=== PATIENT | female | born 1945 | race Caucasian/White ===

== ENCOUNTER → 2020-11-10 10:09 | Outpatient (CLI) | payer OTHER, SELFPAY ==
[2020-11-10 11:08] LABS: Add Manual Diff / Slide Review NO; Basophils Absolute Auto 100 /uL (0-100); Basophils Percent Auto 1.1 % (0-2); Eosinophils Absolute Auto 200 /uL (0-450); Eosinophils Percent Auto 2.9 % (2-4); Hematocrit 41.6 % (36-46); Hemoglobin 13.9 g/dL (12.0-16.0); Lymphocytes Absolute Auto 1300 /uL (1100-4500); Lymphocytes Percent Auto 20.3 % (25-40); Mean Corpuscular HGB Conc 33.4 % (30-36); Mean Corpuscular Hemoglobin 29.9 PG (26-34); Mean Corpuscular Volume 89.6 fL (80-100); Monocytes Absolute Auto 500 /uL (0-900); Monocytes Percent Auto 8.1 % (3-14); Neutrophils Absolute Auto 4400 /uL (1500-7000); Neutrophils Percent Auto 67.6 % (50-75); Platelet Count 240 X10^3/uL (150-400); Red Blood Cell Count 4.64 X10^6/uL (4.0-5.2); Red Cell Distribution Width 14.5 % (11.6-14.8); White Blood Cell Count 6.5 X10^3/uL (4.5-11.0)
[2020-11-10 11:22] LABS: BUN Creatinine Ratio 18.9 (6-22); Blood Urea Nitrogen 14 mg/dL (7-17); Carbon Dioxide 28 mmol/L (22-32); Chloride 105 mmol/L (98-107); Estimated Glomerular Filt Rate > 60.0 mL/min (>60); Glucose 79 mg/dL (80-110); HEMOLYSIS < 15 (0-50); Potassium 4.6 mmol/L (3.4-5.1); Sodium 140 mmol/L (137-145)
== END ==
PROVIDERS: PCP Family Medicine; Referring Provider Orthopaedic Surgery; Visit Provider Orthopaedic Surgery
DX: Z01.818 Encounter for other preprocedural examination (principal); I10 Essential (primary) hypertension; Z01.812 Encounter for preprocedural laboratory examination
CPT/HCPCS: 36415; 80048; 85025; 93005

== ENCOUNTER → 2020-11-27 09:45 | Outpatient (CLI) | payer OTHER, SELFPAY ==
[2020-11-27 11:15] LABS: COVID19 -Nasal RAPID Negative (Negative)
== END ==
PROVIDERS: PCP Family Medicine; Visit Provider Physician Assistant
DX: Z01.812 Encounter for preprocedural laboratory examination (principal); Z20.822 Contact with and (suspected) exposure to COVID-19
CPT/HCPCS: 87635

== ENCOUNTER 2020-11-29 08:54 | Day surgery (SDC) | payer OTHER, SELFPAY ==
[2020-11-22 08:34] VITALS: BMI 33.0
[2020-11-29] VITALS (16 sets, daily range): BP systolic 104–142; BP diastolic 66–95; PULSE 60–97; RESP 11–20; TEMP 36.2–37.3; O2SAT 72–97; BMI 33.0
--- NOTE | 2020-11-29 | PATH_ITS ---
[facility] Accession Number: [id number] . 01 Material submitted: . shoulder - RIGHT SHOULDER . 01 Clinical history: . SKIN LESION . 01 Diagnosis: Right Shoulder, Excision: Seborrheic keratosis, inflamed. [facility] 12/03/2020 1453 Local . 01 Electronically signed: . Gabbie Marshall MD, Dermatopathologist NPI- [id number] . 01 Gross description: . The specimen is received in formalin, labeled skin lesion right shoulder, and consists of a 3.3 x 0.5 cm titus skin excised to a depth of 0.8 cm. The margin is inked blue. The specimen is serially sectioned and entirely submitted. . A1: Tips. A2-A4: Central cross-sections - three each . ([id number]) /[facility] 12/03/2020225 Local . 01 Pathologist provided ICD-10: L82.0 . 01 CPT . 388156 Performed at: 01 [facility] [address] [place] [address], [place], [place] [id number] MD Martinez José MD Phone: [phone]
--- NOTE | 2020-11-29 06:30 | DI.RAD.S_ITS ---
PROCEDURE: XR SHOULDER RT 1V INDICATIONS: post op total shoulder TECHNIQUE: Single view of the shoulder were acquired. COMPARISON: None. FINDINGS: Bones: No acute fracture identified. Expected alignment of reverse polarity right shoulder arthroplasty. The hardware appears intact. Soft tissues: Expected postsurgical sequela IMPRESSION: Expected postoperative appearance. Dictated by: Efra Mosquera M.D. on 11/29/2020 at 14:24 Approved by: Efra Mosquera M.D. on 11/29/2020 at 14:25
[2020-11-29] MEDS: ACETAMINOPHEN 325 MG TABLET 975 MG PO (09:25)
[2020-11-29] MEDS: CELECOXIB 200 MG CAPSULE PO (09:26)
[2020-11-29] MEDS: PREGABALIN 75 MG CAPSULE PO (09:26)
[2020-11-29] MEDS: LACTATED RINGERS 1,000 ML 42 ML IV (09:30)
--- NOTE | 2020-11-29 09:48 | PM.PREOP ---
Pre-operative Note COVID-19 COVID-19 status: Negative Result date/Date tested (Pos, Neg/Pending): 11/27/20 Interval Note History & Physical reviewed/Exam performed by Physician: Yes Changes to H&P: No
--- NOTE | 2020-11-29 10:09 | P.OP_ITS ---
Operative Date/Time/Diagnoses Date of procedure: 11/29/20 Time of procedure: 12:36 Pre-op diagnosis: Right shoulder osteoarthritis with rotator cuff pathology Post-op diagnosis: other (1. Right shoulder osteoarthritis with rotator cuff pathology 2. Skin lesion of right shoulder) Procedure & Clinicians Procedure: 1. Right reverse total shoulder replacement 2. Excisional biopsy of skin lesion Same procedure as scheduled: Yes Indications: The patient is had chronic right shoulder pain unresponsive to nonoperative therapies. Radiographic studies have revealed changes consistent with a massive rotator cuff tear and arthritis. They have elected to proceed with reverse total shoulder replacement after discussion of the risks benefits and alternatives. Risks discussed included but were not limited to: Failure to improve, instability, infection, nerve damage, deep venous thrombosis, pulmonary embolism, stroke, coma, myocardial infarction and . Surgeon: Raymond Moran Openstack Developer: Arslan Harman Click Yes if Unassisted: No Anesthesia Type: General, Peripheral nerve block and Local Operative Notes Findings: The patient had severe osteoarthritis with dramatic thinning of the rotator cuff. She also was noted to have a verrucous brownish skin lesion in line with the intended incision this was excised and sent for pathology. Closure Type: primary Specimen(s): other (Skin lesion sent for pathology) Prosthetic devices, grafts, tissues, transplants, or devices: Implants used during this procedure were manufactured by the [employer] and included an RSP reverse total shoulder system with a 30 mm base plate with locking screws measuring 30, 26, 14 and 14 mm in length, a 32 neutral glenoid head with retaining screw, a 12 mm small shell humeral stem and a 32 mm neutral +4 E plus humeral socket. Applied: implant(s) Estimated Blood Loss (mL): 100 Blood products transfused: none Procedure in detail: The patient was seen in the preoperative area where they identified the right shoulder as the operative site and this was marked with my initials. They received preoperative antibiotics and underwent the induction of an interscalene block. They were taken to the operating room and placed on the operating room table in a supine position with the underwent the induction of a general anesthetic. There were then repositioned in the ?beach chair? position using a dedicated positioner. All pressure points were well padded. The knees were slightly bent to prevent tension on the sciatic nerves. A time study observer-out was performed. The right arm was prepared from the fingertips to the base of the neck with ChloraPrep in the usual fashion and draped through sterile drapes. An approximately 15 cm incision was created starting at the clavicle just above the coracoid and going to the deltoid insertion. The deltopectoral interval was used to access the shoulder taking the vein to the medial side. The vein was unfortunately lacerated by a retractor partway through the case and was cauterized and ligated during closure.. The upper 1 cm of the pectoralis major was released. The biceps tendon was identified and used as a guide to releasing the remaining subscapularis. The biceps itself was tenodesed over the pectoralis tendon using a suture. The subscapularis was tagged for later repair. The shoulder was dislocated and a proximal humeral osteotomy performed using an extramedullary guide. A proximal humeral protector was then placed. Retractors were placed access the glenoid. A 360 degree release was performed of the remaining subscapularis with care being taken to protect the axillary nerve. The soft tissues were removed circumferentially around the glenoid. The guide was used to drill the guide hole in the center of the inferior glenoid. The tap was placed and used as a guide for the reamer. The tap was then removed and the glenoid base plate inserted. The peripheral locking screws were then placed through the appropriate guide. A trial glenoid head was applied. We then turned our attention to the humerus. The proximal humeral protector was removed. Cylindrical reamers were used to size the canal. Broaching was then performed beginning with a small broach and working up until a line to line fit with the reamer was obtained. The guide for the proximal metaphyseal reamer was then applied and the metaphysis was reamed appropriately. The trial metaphyseal portion of the body was then applied to the broach. Trial reductions were performed and the size of the glenoid head and the cup were optimized. Stability was checked in maximal internal and external rotation and range of motion was checked to allow access to the top of the head, internal rotation to an excess of 50? in the ?scarecrow position? and the ability to reach the groin. The appropriate final prosthetic components were then opened. The glenoid head was impacted into position and checked for rotational and axial stability before placing the set screw. The humeral prosthetic was then impacted into position. The humeral cup was placed. The joint was relocated and irrigated. The subscapularis was repaired to the lateral remnant of the subscapularis with [id number] Ethibond sutures. The deltopectoral interval was reapproximated with 0 Vicryl. During closure I excised the skin lesion that was on the lateral flap that was immediately next to the incision. It was sent to pathology. Subcutaneous layer was closed with interrupted 3-0 Vicryl and skin with a running 3 0 V lock suture. Subcutaneous tissues were then infiltrated with 0.5% Marcaine for postoperative pain control. An Aquacel Ag dressing was applied and the patient's arm was placed in a sling. The patient was then transferred to the recovery room in good condition having tolerated the procedure well. Complications: none Post-operative Condition: stable Disposition: PACU Plan for aftercare: The patient will be maintained in the hospital until she is safe for the home environment; she will likely be discharged tomorrow. She will be allowed to use her arm below shoulder level in front of her body for the 1st 6 weeks and then range of motion will be increased.
--- NOTE | 2020-11-29 10:26 | SUR.PREOP ---
Block start time [1019] . Monitoring initiated and maintained throughout procedure. Oxygen and medications given per Dr Thompson anesthesiologist instructions. Patient remained stable throughout procedure, no adverse reactions noted. Block end time [1025].
[2020-11-29] MEDS: TRANEXAMIC ACID 1,000 MG VIAL 1000 MG INJ ×2 (11:00→12:07)
--- NOTE | 2020-11-29 11:05 | PM.PROC.1 ---
Procedures Date/Time Date of procedure: 11/29/20 Time of procedure: 10:20 General Procedure description: Ultrasound guided interscalene brachial plexus nerve block for post op pain control after right shoulder arthroplasty by Dr. Moran. Risk and benefits of procedure discussed with patient. ASA monitoring applied to patient. O2 given via nasal cannula. 1 mg Versed and 50 mcg fentanyl given for procedural sedation. Skin site was prepped with chlorhexidine and allowed to fully dry. Sterile gloves, mask, hat and probe cover were used to maintain sterility. 2% lidocaine and 30ga needle was used to make a small skin wheal at needle insertion site. Under ultrasound guidance, a 21ga 50mm Pajunk needle was directed into the interscalene groove (middle/anterior scalenes) near the brachial plexus. Patient reported no parasthesias. After negative aspiration, 20 mL 0.5% ropivicaine and 10mg dexamethasone were injected around brachial plexus. Patient tolerated procedure well.
--- NOTE | 2020-11-29 11:11 | SUR.OPER ---
Beach chair with Schlein shoulder positioner. Lower body on padded OR bed. Head in foam padded head cradle, secured with straps. Non-operative arm secured <90 degrees abduction. Pillow under knees. Safety belt at thigh. Cloth tape over blanket over lower legs.
[2020-11-29] MEDS: BUPIVACAINE 0.5% (PF) VIAL 30 ML INJ (11:17)
[2020-11-29] MEDS: CEFAZOLIN 1 GM VIAL 2 GM IV (11:18)
[2020-11-29] MEDS: BENZOCAINE/MENTHOL 1 LOZ PKT 1 EACH PO (12:59)
--- NOTE | 2020-11-29 13:53 | PC.NURSE ---
Patient alert, oriented denies pain, CMS+ RUE. Denies nausea. Patient oriented to room and call light.
[2020-11-29] MEDS: ACETAMINOPHEN 325 MG TABLET 650 MG PO ×2 (14:21→21:05)
[2020-11-29] MEDS: LACTATED RINGERS 1,000 ML 100 ML IV ×2 (14:21→21:09)
[2020-11-29] MEDS: IBUPROFEN 400 MG TABLET PO ×3 (14:21→21:05)
--- NOTE | 2020-11-29 16:58 | PT.IIE ---
Current Diagnoses Primary osteoarthritis, right shoulder (11/29/20) Surgery Performed Operation Date: 11/29/20 10:15 Actual Procedures p Total Shoulder Arthroplasty - Reverse(Right) - Raymond Moran MD Surgical History (Last Updated 11/22/20 @ 09:36 by Jerri Pelletier, RN) History of bunionectomy of left great toe History of cataract surgery History of eye removal History of surgery (01/11/16) Status post breast reduction Medical History (Last Updated 11/22/20 @ 09:28 by Jerri Pelletier RN) Arthritis Easy bruisability GERD (gastroesophageal reflux disease) MRSA (methicillin resistant Staphylococcus aureus) Osteoarthritis Physical Therapy Inpatient Evaluation/Re-Eval M1 PT/OT-IP Prior Functional Status Start: 11/29/20 16:25 Freq: NEEDED Status: Active Protocol: Document 11/29/20 16:58 AW (Rec: 11/29/20 17:27 AW [id number]) Medical Review Prior Functional Status Medical History Reviewed Yes Communication WNL. Pt is an effective verbal communicator Mobility and Gait Independent without AD. Pt denies falls history. Activities of Daily Living and IADL's Pt is RHD, has been needing some assist to don a bra, but is otherwise independent with ADL's. Social History Household Members friend(s) Living Arrangements Apartment/Condo Number of Floors (Floors) One Floor Number of Stairs To Enter/Railing? 1 BORA without railing Home Environment High Toilet,Tub/Shower Home Equipment Straight Cane,Hand Held Shower ,Grab Bars In Shower Employment Status Self-Employed Additional Social History Comment Pt has an adjustable bed. 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 Pt's son lives on the other side of her duplex. M2 PT-IP Current Condition Start: 11/29/20 16:25 Freq: NEEDED Status: Active Protocol: Document 11/29/20 16:58 AW (Rec: 11/29/20 17:27 AW [id number]) Physical Therapy Current Condition Current Condition Evaluation Date 11/29/20 Treatment Diagnosis R reverse TSA; decreased independence with self-care Onset Date 11/29/20 Precautions Shoulder Precautions Sling,PROM,Internal Rotation to Body,No External Rotation, No Abduction,Forward Flexion to 90 degrees,Pendulums Brace Pt arrived from OR in a sling that was used with a new OR positioning system. M3 PT-IP Subjective Start: 11/29/20 16:25 Freq: NEEDED Status: Active Protocol: Document 11/29/20 16:58 AW (Rec: 11/29/20 17:27 AW [id number]) Subjective Physical Therapy Visit Type Type Initial Evaluation Visit Start Time 16:29 Visit Stop Time 16:58 Total Visit Minutes 29 Physical Therapy Visit Comments Patient Comments Pt is willing to participate with PT Patient Goals Return home with roommate support. Therapy Pain Assessment Pain When Pain Assessed During Mobility Pain Present Pain Present Denied Pain M4 PT-IP Mobility and Gait Start: 11/29/20 16:25 Freq: NEEDED Status: Active Protocol: Document 11/29/20 16:58 AW (Rec: 11/29/20 17:27 AW [id number]) PT-Bed Mobility Assessment Supine to Sit Supine to Sit Standby Assistance,Head of Bed Elevated Sit to Supine Sit to Supine Standby Assistance PT-Transfer Assessment Sit to and From Stand Sit to and from Stand Standby Assistance,Use of Upper Extremities Equipment Transfer Assistive Device Gait Belt Orthotic/Prosthetic Devices or Brace: Yes Transfers Transfer Destination Chair Transfer Technique Stand Step Pivot Transfer Ability Level of Assist Standby Assistance Comments Mobility Comments Pt was sitting up in bed 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 BP 137/72 HR 98 SpO2 92% on 2LPM O2 NC. She transitioned to EOB SBA and then stood to walk to the sink for education and sling fitting. Sling was bulky and with an unnecessary wedge. PT left to obtain standard sling and returned for fitting and education with pt at mirror. Pt began to complain of dizziness and returned to the bed SBA. BP was stable 132/76 HR 95 but Spo2 was 87% on room air. Reapplied O2 via NC and SpO2 rosemary to 91% within one minute. Pt was left with call light and tray table in reach. Gait Assessment Gait Gait Assistance Required: Standby Assistance Distance (Feet) 20 Assistive Devices Assistive Device Gait Belt Gait Deviations General Gait Pattern Antalgic,Decreased Stride Length,Decreased Feet Clearance,Wide Based Gait Factors Limiting Gait Function Factors Limiting Gait Function Decreased Activity Tolerance, Decreased Sensation,Decreased Strength,Limited Range of Motion Comments Gait Comments Pt ambulated in the room without assistive device as is her baseline. Stair Climbing Assessment Comments Stair Climbing Comments Not assessed. PT-Balance Assessment Sitting Balance and Reactions Static Sitting Balance Ability Good Dynamic Sitting Balance Ability Good Standing Balance and Reactions Static Standing Balance Ability Good Dynamic Standing Balance Ability Good Device Used no AD M5 PT-IP Objective Assessments Start: 11/29/20 16:25 Freq: NEEDED Status: Active Protocol: Document 11/29/20 16:58 AW (Rec: 11/29/20 17:27 AW [id number]) Orientation Orientation/Cognition Level of Alertness Alert Orientation Name,Day of Week,Place, Situation Language Function Ability No Deficits Noted Safety Awareness Understands Safety Issues Memory Description No Deficits Noted Gross Range of Motion Upper Extremity ROM Assessment Right Impaired Lower Extremity ROM Assessment Within Functional Limits Strength Upper Extremity Strength Assessment Right Impaired Lower Extremity Strength Assessment Within Functional Limits Comments Strength Comments LUE grossly 4+/5 Sensation Assessment Sensation Gross Sensation Right UE Impaired Light Touch Impaired Proprioception (Position) Impaired Sensation Description Numbness,[employer] Muscle Tone Muscle Tone WNL Yes M6 PT-IP Treatment Start: 11/29/20 16:25 Freq: NEEDED Status: Active Protocol: Document 11/29/20 16:58 AW (Rec: 11/29/20 17:27 AW [id number]) Physical Therapy Treatment Education Education Provided Precautions,Post-Op Packet, Safety Brace Education Donning,Waterflow,Patient Equipment Issued Equipment Type and Company Replaced OR sling with standard shoulder sling XL from [facility] Other Treatments Other Treatment Performed Educated pt on PT plan of care , post op precautions, sling fitting, and ADL management. Demonstrated but pt did not perform exercises. Will review at next session. M7 PT-IP Assessment and Plan Start: 11/29/20 16:25 Freq: NEEDED Status: Active Protocol: Document 11/29/20 16:58 AW (Rec: 11/29/20 17:27 AW [id number]) PT Summary Assessment and Plan Potential Rehabilitation Potential Good Status of Condition at Evaluation Evolving Summary Impairments Pain,ROM,Strength,Balance, Sensation,Bed Mobility, Transfers,Gait Assessment Summary Medina is a 75 yo woman seen for PT evaluation on POD0 following R reverse TSA. She is independent without assistive device at baseline. She lives with supportive roommates and her son lives in the adjacent duplex unit. Pt completed all mobility SBA on evaluation and participated in training for sling fitting and mangement. Pt will need additional training but PT anticipates she will be safe to discharge home with assist once medically stable. Goals Bed Mobility Goal Independent Transfer Goal Independent Gait Goal Independent Gait Distance 100 Other Goals -up/down 1 step without rail CGA Frequency of Treatment Frequency Of Treatment Twice a Day Treatment Plan Physical Therapy Treatment Plan Bed Mobility Training,Transfer Training,Gait Training, Therapeutic Exercise,Balance Retraining,Post Op Education, Discharge Planning,Hot or Cold Pack Other Recommendations and Next Treatment review sling fit, don/doff, Focus and ADL management Precautions Shoulder Precautions Sling,PROM,Internal Rotation to Body,No External Rotation, No Abduction,Forward Flexion to 90 degrees,Pendulums Recommendations To Nursing Amount of Assist Needed 1 Person Assist Discharge Recommendations PT Discharge Recommendations Home with Assistance, Outpatient PT Transportation Needs at Discharge Private Vehicle
[2020-11-29] MEDS: ONDANSETRON 4 MG/2 ML INJ IV (18:22)
[2020-11-29] MEDS: ASPIRIN EC 81 MG TABLET PO (21:05)
[2020-11-29] MEDS: DOCUSATE 100 MG CAPSULE PO (21:05)
[2020-11-29] MEDS: MELATONIN 3 MG TABLET 9 MG PO (21:06)
[2020-11-30] MEDS: IBUPROFEN 400 MG TABLET PO ×3 (00:29→08:32)
[2020-11-30 04:22] VITALS: BP 103/61; PULSE 72; RESP 16; TEMP 36.3; O2SAT 92
[2020-11-30 06:33] LABS: Hematocrit 36.1 % (36-46); Hemoglobin 11.7 g/dL (12.0-16.0)
--- NOTE | 2020-11-30 07:37 | PM.DS.1 ---
History of Present Illness History of Present Illness Date Patient Seen: 11/30/20 Time Patient Seen: 07:38 Chief complaint: OPB Narrative: The history and physical is contained in the chart in a previously completed note. Please refer to that note for this information. Discharge Providers Provider Discharge Date: 11/30/20 Primary care physician: Mickey Pacheco MD Consults: 11/29/20 13:19 Consult to Discharge Planning Routine Comment: Consult to Physical Therapy Evaluate & Treat Comment: Physician Instructions: Pendulums, PROM 90 FF, 0 Abd, 0 ER, IR to body Discharge provider: Raymond Moran MD Summary Hospital Course Discharge Diagnosis: 1. Right shoulder osteoarthritis with rotator cuff pathology 2. Post hemorrhagic anemia Hospital Course: Patient was admitted to the hospital and taken directly to the operating room on November 29 2020. She underwent a right reverse total shoulder replacement without complications. She was comfortable on postoperative day 1. She had been able to ambulate to and from the bathroom. She had a mild post hemorrhagic anemia that did not require specific treatment. She was felt to be stable for discharge. Status at Discharge Cognitive/behavioral status at discharge: oriented Functional status at discharge: independent ambulation Overall status at discharge: patient is progressing back to baseline Time Spent with Patient Time spent: Less than 30 minutes Exam Vital Signs (past 8 hours): - 11/29/20 23:48 11/30/20 04:22 Temperature 97.1 F L 97.3 F L Pulse Rate 67 72 Respiratory Rate 18 16 Blood Pressure 104/66 103/61 Pulse Oximetry 93 92 Oxygen Delivery Method Room Air Oxygen Flow Rate 0 Narrative Exam Narrative: Right upper extremity wound is dressed with no drainage on the bandage. Light touch is intact in the radial, ulnar, median, muscular cutaneous and axillary nerve distribution. She can extend her thumb, abduct her thumb and abduct her fingers. She can fire her biceps and deltoid. Objective Labs Result Diagrams: 11/30/20 06:02 Labs: Laboratory Results - last 24 hr 11/30/20 06:02 Hgb 11.7 L Hct 36.1 PFSH Medical History (Updated 11/22/20 @ 09:28 by Jerri Pelletier RN) Arthritis Easy bruisability GERD (gastroesophageal reflux disease) MRSA (methicillin resistant Staphylococcus aureus) Osteoarthritis Surgical History (Updated 11/22/20 @ 09:36 by Jerri Pelletier RN) History of bunionectomy of left great toe History of cataract surgery History of eye removal History of surgery (01/11/16) Status post breast reduction Social History household members: friend(s) Smoking Status: Never smoker alcohol intake: current Discharge Assessment & Plan Assessment and Plan Assessment: Stable postoperative day 1 status post right reverse total shoulder replacement. She has a mild post hemorrhagic anemia which will not require specific treatment. Plan of Treatment: Discharge to home with follow-up in my office in 10-14 days. Discharge prescriptions for oxycodone and instructions for the use of Tylenol, ibuprofen and aspirin for DVT prophylaxis have been given to the patient. Discharge Plan Discharge Plan Patient Disposition: Home Discharge orders & Medications Discharge Orders: Discharge (Order); Ordered 11/30/20 Ordered By: Raymond Moran Prescriptions: New acetaminophen 325 mg Tablet 650 mg PO TID 30 Days Qty: 180 RF: 0 aspirin 81 mg Tablet,Delayed Release (Dr/Ec) 81 mg PO BID 42 Days Qty: 84 RF: 0 ibuprofen 400 mg Tablet 400 mg PO Q4HR 30 Days RF: 0 oxycodone 5 mg Tablet 5 mg PO Q4H PRN (Reason: Pain, Moderate (4-6)) Qty: 40 RF: 0 Continued melatonin 10 mg Tablet 10 mg PO BEDTIME PRN (Reason: Sleep) RF: 0 Discontinued ibuprofen 200 mg Capsule 600 - 800 mg PO DAILY PRN (Reason: Pain) RF: 0 Follow up/Referrals: Mickey Pacheco MD [Primary Care Provider] - Raymond Moran MD [Physician] - 2 Weeks Diet/Activity/Treatments Diet: Diet as Tolerated and Regular Activity: You may use your right arm in front of your body below shoulder level. Lift no more than 1-2 lb with your right arm. Cold/Heat Therapy: Apply ice to the right shoulder for 15 minutes every hour as needed for pain control. Skin/Wound/Dressing Care Report to your healthcare provider any signs of infection, such as:: chills, fever, night sweats, increased pain, unusual drainage and unusual redness Dressing: Leave the dressing intact until your follow-up in my office. You may shower with the dressing in place. If the central strip of the dressing becomes saturated with either water or blood, please call the office to have it evaluated. Visit Report/Discharge Packet Instructions: DI for Shoulder Replacement Stand Alone Forms: Surgery Discharge Discharge Data Primary Care Provider: Mickey Pacheco Attending Provider: Raymond Moran Quality VTE Deep Vein Thrombosis/Pulmonary Embolism Present on Admission: No
[2020-11-30 08:00] VITALS: BP 118/73; PULSE 70; RESP 16; TEMP 36.6; O2SAT 93
[2020-11-30] MEDS: ACETAMINOPHEN 325 MG TABLET 650 MG PO (08:31)
[2020-11-30] MEDS: ASPIRIN EC 81 MG TABLET PO (08:31)
[2020-11-30] MEDS: polyethylene glycoL 3350 17 GM POWD.PACK PO (08:31)
[2020-11-30] MEDS: DOCUSATE 100 MG CAPSULE PO (08:32)
--- NOTE | 2020-11-30 10:53 | PT.IIE ---
Current Diagnoses Primary osteoarthritis, right shoulder (11/29/20) Surgery Performed Operation Date: 11/29/20 10:15 Actual Procedures p Total Shoulder Arthroplasty - Reverse(Right) - Raymond Moran MD Surgical History (Last Updated 11/22/20 @ 09:36 by Jerri Pelletier, RN) History of bunionectomy of left great toe History of cataract surgery History of eye removal History of surgery (01/11/16) Status post breast reduction Medical History (Last Updated 11/22/20 @ 09:28 by Jerri Pelletier RN) Arthritis Easy bruisability GERD (gastroesophageal reflux disease) MRSA (methicillin resistant Staphylococcus aureus) Osteoarthritis Physical Therapy Inpatient Evaluation/Re-Eval M1 PT/OT-IP Prior Functional Status Start: 11/29/20 16:25 Freq: NEEDED Status: Active Protocol: Document 11/29/20 16:58 AW (Rec: 11/29/20 17:27 AW [id number]) Medical Review Prior Functional Status Medical History Reviewed Yes Communication WNL. Pt is an effective verbal communicator Mobility and Gait Independent without AD. Pt denies falls history. Activities of Daily Living and IADL's Pt is RHD, has been needing some assist to don a bra, but is otherwise independent with ADL's. Social History Household Members friend(s) Living Arrangements Apartment/Condo Number of Floors (Floors) One Floor Number of Stairs To Enter/Railing? 1 BORA without railing Home Environment High Toilet,Tub/Shower Home Equipment Straight Cane,Hand Held Shower ,Grab Bars In Shower Employment Status Self-Employed Additional Social History Comment Pt has an adjustable bed. 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 Pt's son lives on the other side of her duplex. M2 PT-IP Current Condition Start: 11/29/20 16:25 Freq: NEEDED Status: Active Protocol: Document 11/29/20 16:58 AW (Rec: 11/29/20 17:27 AW [id number]) Physical Therapy Current Condition Current Condition Evaluation Date 11/29/20 Treatment Diagnosis R reverse TSA; decreased independence with self-care Onset Date 11/29/20 Precautions Shoulder Precautions Sling,PROM,Internal Rotation to Body,No External Rotation, No Abduction,Forward Flexion to 90 degrees,Pendulums Brace Pt arrived from OR in a sling that was used with a new OR positioning system. M3 PT-IP Subjective Start: 11/29/20 16:25 Freq: NEEDED Status: Active Protocol: Document 11/30/20 10:53 AW (Rec: 11/30/20 11:01 AW [id number]) Subjective Physical Therapy Visit Type Type Treatment Note Visit Start Time 10:40 Visit Stop Time 10:53 Total Visit Minutes 13 Physical Therapy Visit Comments Patient Comments Pt is preparing for discharge. Therapy Pain Assessment Pain When Pain Assessed During Mobility Pain Present Pain Present Pain Reported Location Right Shoulder Intensity 3 Scale Used Numeric (0 - 10) Pain Management Techniques Timing of Activity with Medications M4 PT-IP Mobility and Gait Start: 11/29/20 16:25 Freq: NEEDED Status: Active Protocol: Document 11/30/20 10:53 AW (Rec: 11/30/20 11:01 AW [id number]) PT-Bed Mobility Assessment Supine to Sit Supine to Sit Standby Assistance,Head of Bed Elevated Scooting Scooting to Edge of Bed Standby Assistance PT-Transfer Assessment Sit to and From Stand Sit to and from Stand Standby Assistance,Use of Upper Extremities Equipment Transfer Assistive Device Gait Belt Orthotic/Prosthetic Devices or Brace: Yes Transfers Transfer Destination Chair Transfer Technique ambulated without AD Transfer Ability Level of Assist Standby Assistance Comments Mobility Comments Pt was lying in bed as PT arrived. She sat up and walked to the mirror for teaching on sling fitting. Pt was able to don and doff with verbal cues . She then ambulated in the halls without AD SBA before returning to the room and sitting on the chair with good safety awareness. Gait Assessment Gait Gait Assistance Required: Standby Assistance Distance (Feet) 100 Assistive Devices Assistive Device Gait Belt Orthotic/Prosthetic Devices or Brace: Yes Gait Deviations General Gait Pattern Antalgic,Decreased Feet Clearance,Wide Based Gait Factors Limiting Gait Function Factors Limiting Gait Function Limited Range of Motion,Pain PT-Balance Assessment Sitting Balance and Reactions Static Sitting Balance Ability Good Dynamic Sitting Balance Ability Good Standing Balance and Reactions Static Standing Balance Ability Good Dynamic Standing Balance Ability Good Device Used no AD M5 PT-IP Objective Assessments Start: 11/29/20 16:25 Freq: NEEDED Status: Active Protocol: Document 11/29/20 16:58 AW (Rec: 11/29/20 17:27 AW [id number]) Orientation Orientation/Cognition Level of Alertness Alert Orientation Name,Day of Week,Place, Situation Language Function Ability No Deficits Noted Safety Awareness Understands Safety Issues Memory Description No Deficits Noted Gross Range of Motion Upper Extremity ROM Assessment Right Impaired Lower Extremity ROM Assessment Within Functional Limits Strength Upper Extremity Strength Assessment Right Impaired Lower Extremity Strength Assessment Within Functional Limits Comments Strength Comments LUE grossly 4+/5 Sensation Assessment Sensation Gross Sensation Right UE Impaired Light Touch Impaired Proprioception (Position) Impaired Sensation Description Numbness,[place] Muscle Tone Muscle Tone WNL Yes M6 PT-IP Treatment Start: 11/29/20 16:25 Freq: NEEDED Status: Active Protocol: Document 11/30/20 10:53 AW (Rec: 11/30/20 11:01 AW [id number]) Physical Therapy Treatment Exercises Exercises Shoulder Pendulums,Elbow Flexion/Extension,Wrist ROM, Hand ROM Education Education Provided Precautions,Safety Brace Education Donning,[place],Patient Other Treatments Other Treatment Performed Reviewed ADL management and performed sets of exercises noted above for HEP. M7 PT-IP Assessment and Plan Start: 11/29/20 16:25 Freq: NEEDED Status: Active Protocol: Document 11/30/20 10:53 AW (Rec: 11/30/20 11:01 AW [id number]) PT Summary Assessment and Plan Summary Impairments Pain,ROM,Strength,Balance, Sensation,Bed Mobility, Transfers,Gait Progress Towards Goals Progressing Toward Goals Assessment Summary Medina is mobilizing well and is able to don and doff her sling independently. She has good understanding of her precautions. She has assist at home and is safe to discharge with assist and outpatient PT once medically stable. Goals Bed Mobility Goal Independent Transfer Goal Independent Gait Goal Independent Gait Distance 100 Other Goals -up/down 1 step without rail CGA Frequency of Treatment Frequency Of Treatment Discharge Treatment Plan Physical Therapy Treatment Plan Bed Mobility Training,Transfer Training,Gait Training, Therapeutic Exercise,Balance Retraining,Post Op Education, Discharge Planning,Hot or Cold Pack Precautions Shoulder Precautions Sling,PROM,Internal Rotation to Body,No External Rotation, No Abduction,Forward Flexion to 90 degrees,Pendulums Recommendations To Nursing Amount of Assist Needed Standby Assistance Discharge Recommendations PT Discharge Recommendations Home with Assistance, Outpatient PT Transportation Needs at Discharge Private Vehicle
--- NOTE | 2020-11-30 11:24 | CM.DANOTE ---
Patient is a 75 year old female who was admitted on 11/29/20 for Shoulder Replacement. Pt has [employer] for insurance and her PCP is Mickey Pacheco. EMR was reviewed. Per Ortho MD, pt with hx of severe osteoarthritis and pt tolerated procedure well and stable for d/c today after further PT. Per PT, recommending safe d/c home with assist from roommate and outpt PT. Pt lives in [place] in a duplex/condo with 2 roommates and one roommate plans to be available for assist 08/01 at d/c and pt already set up with outpt PT. Pt's son/DPCHANELLE Beck also lives in the condo next door. Pt is quite active and independent at baseline and does not anticipate any needs at d/c and agreeable with plan of home today via friend POV. Plan: Patient to d/c home via friend POV today and outpt PT and no further SW needs at this time. HARRIS Huffman Discharge Planning/Care Management CM Discharge Assessment Start: 11/30/20 11:23 Freq: Status: Active Protocol: Document 11/30/20 11:23 BF (Rec: 11/30/20 11:24 BF [id number]) Discharge Planning Assessment Assigned Insurance Territory Manager HARRIS Chamorro/Assigned Designee Name artemio Beck Contact Information [phone] Advance Directives? No Advance Directives on File No History Provided By Patient,Medical Record Has Patient been admitted in last 30 No days? Prior Living Arrangements Apartment/Condo Household Members friend(s) Type of transporation used prior to Drives own vehicle admit Comment Lives in duplex/condo with two roommates and son lives in duplex next door Independent with ADL's Yes Is patient alert and oriented? Yes Needs Assistance With Home Chores / Shopping Caregiver for Another No Patient/Family Preference OP PT Therapy Barriers to Discharge No Discharge Plan Home Community Services Physical Therapy Transportation Arrangement Friend can provide transport home Referrals Initiated None needed Whiteboard Updated in Patient Room with Yes name and ext. # of Insurance Territory Manager Review Status In Process Please Provide Date Initial DC 11/30/20 Assessment Was Performed Next Review Type Continued Stay Review Pre-Anesthesia Assessment Start: 11/22/20 08:34 Freq: Status: Complete Protocol: Document 11/22/20 08:34 CAB (Rec: 11/22/20 09:12 CAB [id number]) Pre-Anesthesia Assessment Patient Information Reviewed Via Phone Assessment Assessment Completed With Patient H&P Completed Within 30 Days Yes Diagnostic Results BMP/CMP,CBC,EKG Comment Labs/EKG @ [facility] 11/10/20 COVID screen needs to schedule Primary Care Provider Mickey Pacheco Seen Specialist in Last 12 Months Yes Specialist Seen Orthopedist Primary Language Slovenian Heavy Forger Required No Height 166.37 cm Weight 91.626 kg Body Mass Index (BMI) 33.0 Visual Impairment Severely Limited Visual Assist Glasses Dentition Type Partial- Lower,Partial- Upper Barriers to Learning None Comment Left eye removed, fitted with a prosthesis Hx Anesthesia Reactions No Hx Family Anesthesia Reaction No Hx Malignant Hyperthermia No Hx Blood Transfusions No Anesthesia Review Requested No alcohol intake current alcohol intake frequency holidays/special occasions only Smoking Status Never smoker Substance Use Type does not use Pain Present Pain Reported Musculoskeletal Symptoms Difficulty Walking,Joint Pain, Joint Stiffness,Limited Range of Motion History of Falling (Recent or History of No ) Patient is completely paralyzed or No completely immobile Mental Status Oriented to own ability Is patient on oxygen? No Does patient have PATEL/SOB No Hx Sleep Apnea No Suspected Sleep Apnea Yes Comment Pt has not been tested, but feels she may have sleep apnea Currently Taking a Beta [place] No Can You Climb a Flight of Stairs Without Yes SOB Hx Chest Pain No Hx SOB No Hx Syncope or Dizziness No Anti-Coagulant Therapy No Has a Bariatric Physician No Cardiac Testing No Hx Pacemaker/ICD No Pacemaker Rep Required? No Diet Type At Home Regular dysphagia No Gastrointestinal Symptoms Reflux Bladder Pattern Frequency,Nocturia Urinary Catheter Present No Hx Urinary Self Catheterization No Diabetes No Patient No Lactating No Hx Drug Resistant Organism Yes: MRSA back approx 2014 Presence of External or Internal Medical Yes: Left eye prosthesis, Devices right eye lens, upper/lower partials, left great tie Have you had any close contact with No someone diagnosed with COVID-19? Marital Status Single Lives With friend(s) Prior Living Arrangements Apartment/Condo Support System Friend(s) Does the Patient Have Assistance After Yes: A friend will stay w/pt Surgery to assist with DC Patient Discharge Plan Description Return Home Comment Pt advised overnight length of stay per surgeon Feels Safe in Current Environment Yes Been Physically Hurt or Threatened By a No Person in Current Environment Do you have thoughts of harming yourself None or others? Are you currently considering suicide? No Do you have a plan to hurt yourself or No Plan others? Do You Have Any Spiritual Beliefs That No May Affect Your HC Choices? Do You Have Any Cultural Practices That No May Affect Your HC Choices? Comment Titus Who Can We Speak to About Patient's Care Family, friends Identifying Code for Release of Patient Declines to issue Information Health Care Proxy/Next of Kin Kiran (son) Health Care Proxy Emergency Contact Name Shikha Hart (Roommate) Emergency Contact Advance Directives? No Power of Control Tower Radio Operator No PAC Instructions Do not shave/clip surgical site,Durable medical equipment ,Medications to take/avoid, Nasal antibiotic,No ETOH/ petroleum product on skin DOS, NPO,Post-op transportation,Pre -surgical wash,Sturdy shoes/ comfortable clothes,Do not bring valuables and remove jewelry Stop Bang Assessment Do you snore loudly (louder than talking Yes or loud enough to be heard through closed doors) Do you often feel tired, fatigued or Yes sleepy during the daytime Has anyone ever observed you stop Yes breathing while sleeping? Do you have, or are you being treated No for, high blood pressure Is your BMI more than 35 kg/m2 No Age over 50 Yes Estimated neck circumference greater No than 40cm or 16in Gender male No Result Negative
--- NOTE | 2020-11-30 12:03 | PC.NURSE ---
Day shift: Paperwork singed and all questions answered. Pt has all personal belongings. Juan M remains CDI. CMS WNL and good cap refill RUE. Pt stated that she is happy to be going home today. script sent to Pt's pharmacy electronic. Taken to car that is driven by her friend in by IRWIN Egan. Left unit at approx 1215.
== END 2020-11-30 12:34 | disposition home or self-care (01) ==
LOC: OR 08:58 → AC 08:58
PROVIDERS: PCP Family Medicine; Referring Provider Orthopaedic Surgery; Visit Provider Orthopaedic Surgery
PROC: (CPT 23472; principal; 2020-11-29 10:15)
DX: M19.011 Primary osteoarthritis, right shoulder (principal); L82.0 Inflamed seborrheic keratosis
CPT/HCPCS: 23472; 36415; 64450; 73020; 85014; 85018; 97110; 97161; 97530; C1776; J0690; J1100; J2250; J2405; J2704; J3010